=== PATIENT | female | born 1995 | race Caucasian/White ===

== ENCOUNTER 2018-10-23 08:45 | Inpatient (IN) | payer OTHER ==
[2018-10-23 09:18] VITALS: BMI 24.1
[2018-10-23] MEDS ORDERED: Promethazine HCl 25 MG/ML VIAL IM PRN ×2 (09:20→10:20)
[2018-10-23] MEDS ORDERED: Ondansetron PF 4 MG/2 ML Vial IVP PRN ×3 (09:20→11:34)
[2018-10-23] MEDS: Lactated Ringer's 1,000 ML IV SCH ×2 (09:29→14:47)
[2018-10-23] MEDS ORDERED: CEFAZOLIN 2 GM/50 ML-DEXTROSE 2 GM in Premix Bag 1 BAG IVPB SCH (09:30)
[2018-10-23] MEDS ORDERED: Bicitra 30 ML UDCUP PO SCH (09:30)
[2018-10-23] MEDS ORDERED: CEFAZOLIN/Water 2 GM/20 ML SYRINGE SLOW IVP SCH (09:30)
[2018-10-23 09:35] LABS: Hemoglobin 13.3 g/dL (12.0-16.0); Mean Corpuscular HGB CONC 34.8 g/dL (32.0-36.0); Mean Corpuscular Hemoglobin 29.7 pg (27.0-31.0); Mean Corpuscular Volume 85.4 fL (78.0-98.0); Mean Platelet Volume 9.7 fL (7.4-10.4); Platelet Count 194 thou/uL (130-400); RBC Distribution Width 11.9 % (11.5-14.5); Red Blood Cell (RBC) Count 4.46 mill/uL (4.20-5.40); White Blood Cell (WBC) Count 8.1 thou/uL (4.8-10.8)
--- NOTE | 2018-10-23 09:51 | PDOC.LDHP ---
Labor and Delivery H&P Chief complaint: scheduled section HPI: Pt is a 23yo @ 40.2 here for sched CS for breech presentation, declined ECV. Current gestational age (weeks): 40 Due date: 10/21/18 Dating criteria: last menstrual period, first trimester ultrasound Grav: 2 Para: 1 OB History Details: hx of Current complications: none Abnormal US findings: No (breech ) Current medications: pre-annette vitamins Allergies/Adverse Reactions: Allergies Allergy/AdvReac Type Severity Reaction Status Date / Time No Known Allergies Allergy Verified 10/23/18 09:19 Social history: none - Physical Exam Vital signs reviewed and normal: yes General: NAD Heart: RRR Lungs: CTAB Abdomen: gravid Extremeties: no edema FHT: category 1 - OB Labs Blood type: O RH: positive Antibody Screen: negative HIV: negative RPR: negative HEPSAg: negative 1 hour GCT: negative GBS: negative Rubella: immune - Plan Plan: admit to L&D, to OR for section, informed consent obtained, anesthesia consult for pain management -: @ 40 weeks here for scheduled CS for breech presentation, declined ECV. To OR for primary CS.
[2018-10-23] MEDS ORDERED: Morphine PF 1 MG/ML SYR ONE (09:57)
[2018-10-23] MEDS ORDERED: Succinylcholine Chloride 20 MG/ML 10 ml SYRINGE FS ONE (09:58)
[2018-10-23] MEDS ORDERED: Oxytocin 10 UNITS/ML VIAL ONE (09:58)
[2018-10-23] MEDS ORDERED: PROPOFOL 20 ML ONE (09:58)
[2018-10-23] MEDS ORDERED: ePHEDrine/0.9% NaCl/PF SYRINGE 50 mg/10 ml ONE (09:59)
[2018-10-23 10:19] LABS: HBSAg Index 0.19 S/CO (0-0.99); Hep B Surf Ag Non-Reactive S/CO (NonReactive)
[2018-10-23] MEDS ORDERED: Eucerin (Mineral Oil/Petrolatum,White) 30 gm Jar TOP PRN (10:20)
[2018-10-23] MEDS ORDERED: Naloxone HCl 0.4 mg/ml Vial IV PRN (10:20)
[2018-10-23] MEDS ORDERED: Meperidine HCl/PF 25 MG/ML VIAL SLOW IVP PRN ×2 (10:20→10:38)
[2018-10-23] MEDS ORDERED: Ondansetron HCl/PF 4 MG/2 ML Vial IVP PRN ×2 (10:20→10:38)
[2018-10-23] MEDS ORDERED: L&D-Morphine 4 MG/ML VIAL SLOW IVP PRN ×2 (10:20→10:38)
[2018-10-23] MEDS ORDERED: Promethazine HCl 25 MG SUPP PR PRN (10:20)
[2018-10-23] MEDS ORDERED: Naloxone HCl 0.4 mg/ml Vial IVP PRN ×2 (10:20)
[2018-10-23] MEDS ORDERED: diphenhydrAMINE 50 MG/ML VIAL IVP PRN (10:20)
[2018-10-23] MEDS ORDERED: HYDROmorphone 2 MG/ML VIAL SLOW IVP PRN ×2 (10:20→10:38)
[2018-10-23] MEDS ORDERED: Communication Order-Pharmacy FS SCH (10:30)
[2018-10-23] MEDS ORDERED: Ketorolac Tromethamine 30 MG/ML VIAL IVP SCH ×2 (10:30→10:45)
[2018-10-23] MEDS ORDERED: Ondansetron PF 4 MG/2 ML Vial ONE (10:48)
--- NOTE | 2018-10-23 10:49 | PDOC.OPDEL ---
OB Operative/Delivery Note Delivery Dr/Surgeon: Max Assist: Connor Pre-Delivery Diagnosis: breech Procedure/Post Delivery Dx: primary low transverse CS Weeks gestation: 40 Anesthesia: spinal - Findings A Sex: female Weight: 7 lb 5 oz - Additional Findings/Plan Placenta delivered: manual removal findings: low transverse hysterotomy without extension, normal uterus, normal tubes, normal ovaries Estimated blood loss: 600ml Compilations/Other Findings: delivered from complete breech Post delivery plan: routine recovery
[2018-10-23] MEDS ORDERED: Lanolin Ointment 7 GM TUBE TOP PRN (11:34)
[2018-10-23] MEDS ORDERED: Meperidine HCl/PF 25 MG/ML VIAL IM PRN (11:34)
[2018-10-23] MEDS ORDERED: Adacel (T-DAP) 0.5 ML SYRINGE IM ONE (11:34)
[2018-10-23] MEDS ORDERED: diphenhydrAMINE 25 MG CAP PO PRN (11:34)
[2018-10-23] MEDS ORDERED: Bisacodyl 10 MG SUPP PR PRN (11:34)
[2018-10-23] MEDS ORDERED: NS / Oxytocin 40 units/1000ml 1,000 ML IV SCH (11:34)
[2018-10-23] MEDS ORDERED: HYDROcodone/Acetaminophen 5/325 mg Tablet PO PRN (11:34)
[2018-10-23] MEDS: Ketorolac Tromethamine 30 MG/ML VIAL IVP PRN ×2 (14:44→20:53)
[2018-10-23] MEDS: Ibuprofen 800 MG TAB PO SCH ×2 (14:49→22:17)
--- NOTE | 2018-10-23 17:10 | OP ---
DATE OF PROCEDURE: 10/23/2018 Ms. Anneliese Vivas had a primary performed today on 10/23/[address] Lawrence Santana. I functioned as her tourist information assistant. For complete details, please refer to her dictated note. Job ID: [id number]
--- NOTE | 2018-10-23 17:49 | OP ---
DATE OF PROCEDURE: 10/23/2018 PREOPERATIVE DIAGNOSES: 1. A 23-year-old G2, P1 at 40 weeks and 2 days. 2. Breech presentation. 3. Declined external cephalic version. POSTOPERATIVE DIAGNOSIS: Status post primary low transverse section. PROCEDURE PERFORMED: Primary low transverse section. CAPACITY PLANNING MANAGER: Dr. Aquino. ANESTHESIA: Spinal. COMPLICATIONS: None. ESTIMATED BLOOD LOSS: 600 mL. QUANTITATIVE BLOOD LOSS: Pending. FINDINGS: 1. Female infant delivered from complete breech presentation. Apgars pending at the time of dictation. Weight 7 pounds 5 ounces, to [facility]. 2. Low transverse hysterotomy without extension. 3. Normal appearing uterus, tubes, and ovaries bilaterally. 4. Placenta delivered intact, three-vessel cord. 5. Fundus firm after delivery of placenta and closure of hysterotomy. DESCRIPTION OF PROCEDURE: The patient was taken back to the OR with IV fluids running. Once she was in the OR, spinal anesthesia was obtained. The patient was then placed in dorsal supine position with a left lateral tilt. [place] catheter was placed using sterile technique, 2 g of Ancef were administered for surgical prophylaxis and the abdomen was prepped and draped in normal fashion for section. Surgeons were scrubbed in. The anesthesia was tested and found to be adequate. A Pfannenstiel skin incision was made with a scalpel. Skin incision was carried down through the subcutaneous tissue to the fascia. Once the fascia was reached, it was incised in the midline and extended superolaterally using curved Gandara scissors. Allyn clamps were placed at the superior border of the fascia, which was sharply and bluntly dissected off the rectus abdominis muscles allowing adequate delivery for the infant. This step was repeated at the inferior edge of the fascia down towards the level of the pubic symphysis. The rectus muscles were bluntly in the midline. The peritoneum was bluntly entered and stretched laterally. An Juan Manuel O retractor was placed into the peritoneal cavity for retraction, visualization, and protection of the wound. A bladder flap was created and the bladder was dissected away from the planned hysterotomy site. A low-transverse hysterotomy was made with the scalpel. The hysterotomy was bluntly entered and stretched superolaterally using the Johansen maneuver. An amniotomy was performed with clear fluid noted. The infant's feet were grasped at the level of the hysterotomy with gentle fundal pressure. The lower extremities, abdomen , and chest spontaneously delivered, with gentle rotation, the left upper extremity spontaneously delivered, with counter rotation, the right upper extremity spontaneously delivered followed by a spontaneous delivery of the 's head. After the infant was delivered, the cord was doubly clamped and cut, the infant was handed off to the special care nurses in attendance. Cord blood was collected. The placenta was delivered. The uterus was exteriorized and massaged to firm and cleared of clot and debris. The hysterotomy was inspected with no extension noted. The hysterotomy was closed with Monocryl suture in a running locked fashion. After the hysterotomy was closed, the pericolic gutters and hysterotomy were irrigated and suctioned dry. Hysterotomy was again inspected with no bleeding noted. The fundus again was noted to be firm. The fascia and muscles were inspected with no areas of bleeding noted. The fascia was reapproximated with PDS suture from corner to corner. Subcutaneous tissue was irrigated and dried. The subcuticular tissue was re-approximated with 4-0 Monocryl and dressed with Dermabond dressing. The patient tolerated the procedure well. There were no complications. Job ID: [id number] [facility]
[2018-10-23] MEDS: Docusate Calcium (SURFAK) 240 MG CAP PO SCH (20:53)
[2018-10-23] MEDS: Simethicone Chewable 80 MG TAB PO PRN (20:53)
[2018-10-23] MEDS: Ferrous Sulfate 325 MG TAB PO SCH (22:55)
[2018-10-24] MEDS: Ketorolac Tromethamine 30 MG/ML VIAL IVP PRN (04:12)
[2018-10-24] MEDS: Ibuprofen 800 MG TAB PO SCH ×3 (06:27→21:17)
[2018-10-24] MEDS: HYDROcodone/Acetaminophen 5/325 mg Tablet PO PRN ×3 (06:33→16:04)
[2018-10-24 07:06] LABS: Mean Corpuscular HGB CONC 33.8 g/dL (32.0-36.0); Mean Corpuscular Hemoglobin 29.6 pg (27.0-31.0); Mean Corpuscular Volume 87.7 fL (78.0-98.0); Mean Platelet Volume 9.3 fL (7.4-10.4); Platelet Count 155 thou/uL (130-400); RBC Distribution Width 12.3 % (11.5-14.5); Red Blood Cell (RBC) Count 4.39 mill/uL (4.20-5.40); White Blood Cell (WBC) Count 10.2 thou/uL (4.8-10.8)
[2018-10-24] MEDS: Docusate Calcium (SURFAK) 240 MG CAP PO SCH ×2 (09:07→21:17)
[2018-10-24] MEDS: Prenatal Vitamin 1 TAB PO SCH (09:07)
[2018-10-24] MEDS: Ferrous Sulfate 325 MG TAB PO SCH ×2 (09:07→21:36)
--- NOTE | 2018-10-24 09:53 | PDOC.PP ---
Post Progress Note Post Day #: 1 Subjective: doing well, nursing, eating well, ambulating to void PO intake tolerated: yes Flatus: yes Ambulation: yes Vital Signs (12 hours) Temp Pulse Resp BP Pulse Ox 10/24/18 07:56 98.3 F 76 20 106/63 97 10/24/18 04:20 98.2 F 69 18 108/57 L 10/23/18 23:55 98.0 F 58 L 18 103/55 L Weight Weight 154 lb - Physical Examination General: NAD Respiratory: non-labored breathing Fundus firm & at: below umb Extremities: negative homans (B) Skin: CS incision dry & intact, no rash Neurological: no gross focal deficits Psychiatric: A&Ox3, normal affect Result Diagrams: 10/24/18 06:39 Additional Labs: Post Labs Blood Type O POSITIVE 10/23/18 09:24 Hep Bs Antigen Non-Reactive S/CO (NonReactive) 10/23/18 09:24 (1) 40 weeks gestation of Code(s): Z3A.40 - 40 WEEKS GESTATION OF Status: Acute (2) Breech presentation at Code(s): O32.1XX0 - MATERNAL CARE FOR BREECH PRESENTATION, UNSP Status: Acute (3) delivery delivered Code(s): O82 - ENCOUNTER FOR DELIVERY WITHOUT INDICATION Status: Acute - Assessment/Plan A/P: POD1 sp scheduled CS for breech presentation at 40 weeks. Doing well, normal expectations of breast milk production and nutritional needs of baby reviewed.
[2018-10-24] MEDS: Simethicone Chewable 80 MG TAB PO PRN (10:41)
[2018-10-25] MEDS: Simethicone Chewable 80 MG TAB PO PRN (00:05)
[2018-10-25] MEDS: HYDROcodone/Acetaminophen 5/325 mg Tablet PO PRN (06:29)
[2018-10-25] MEDS: Ibuprofen 800 MG TAB PO SCH (06:30)
[2018-10-25 08:05] VITALS: BP 108/57; TEMP 98
[2018-10-25] MEDS: Docusate Calcium (SURFAK) 240 MG CAP PO SCH (09:56)
[2018-10-25] MEDS: Prenatal Vitamin 1 TAB PO SCH (09:56)
[2018-10-25] MEDS: Ferrous Sulfate 325 MG TAB PO SCH (09:57)
--- NOTE | 2018-10-25 10:09 | PDOC.PP ---
Post Progress Note Post Day #: 2 Subjective: feeling well, ready for DC, nursing well, pain controlled w po meds PO intake tolerated: yes Flatus: yes Ambulation: yes Vital Signs (12 hours) Temp Pulse Resp BP BP Pulse Ox 10/25/18 08:04 98.0 F 65 20 108/57 L 98 10/25/18 00:00 97.8 F 60 18 109/59 L Weight Weight 154 lb - Physical Examination General: NAD Cardiovascular: no m/r/g Respiratory: non-labored breathing Abdominal: no distention Fundus firm & at: below umb Extremities: negative homans (B) Skin: CS incision dry & intact, no rash Neurological: no gross focal deficits Psychiatric: normal affect Result Diagrams: 10/24/18 06:39 Additional Labs: Post Labs Blood Type O POSITIVE 10/23/18 09:24 Hep Bs Antigen Non-Reactive S/CO (NonReactive) 10/23/18 09:24 (1) 40 weeks gestation of Code(s): Z3A.40 - 40 WEEKS GESTATION OF Status: Acute (2) Breech presentation at Code(s): O32.1XX0 - MATERNAL CARE FOR BREECH PRESENTATION, UNSP Status: Acute (3) delivery delivered Code(s): O82 - ENCOUNTER FOR DELIVERY WITHOUT INDICATION Status: Acute - Assessment/Plan POD2, doing well, plan for DC today.
== END 2018-10-25 12:05 | disposition home or self-care (01) | DRG 788 ==
LOC: L&D 08:45 → 3SW 13:07
PROVIDERS: ADMIT Obstetrics & Gynecology; ATTEND Obstetrics & Gynecology
PROC: 10D00Z1 Extraction of Products of Conception, Low, Open Approach (ICD-10-PCS; principal; 2018-10-23)
DX: O32.1XX0 Maternal care for breech presentation, not applicable or unspecified (principal); Z3A.40 40 weeks gestation of pregnancy; Z37.0 Single live birth; O48.0 Post-term pregnancy
CPT/HCPCS: 36415; 51702; 85027; 86850; 86900; 86901; 87340; J1200; J1885; J2274; J2405; J2590; J2704